=== PATIENT | female | born 1985 | race Caucasian/White ===

== ENCOUNTER 2018-01-22 14:45 | Outpatient (RCR) | payer BC, OTHER ==
[~2018-01-22 14:45] MED LIST: IBU-6600 MG PO; MOTRIN 800800 MG/TAB PO; PERCOCET 325 MG1 TA2 PO; PRENATAL1 TA1; PRENATAL1 TA7 PO; STOOL SOFTENER100 M2 PO
== END 2018-02-15 | disposition home or self-care (01) ==
LOC: WSPT
DX: M54.16 Radiculopathy, lumbar region (principal)
CPT/HCPCS: G0283-GP

== ENCOUNTER 2019-10-20 16:15 | Outpatient (RCR) | payer BC, OTHER | END 2019-11-03 13:40 | disposition home or self-care (01) | LOC: WSPT 16:15 | DX: M48.061 Spinal stenosis, lumbar region without neurogenic claudication (principal) ==

== ENCOUNTER → 2020-09-03 | Outpatient (CLI) | payer OTHER | LOC: COL.RAD 12:05 | DX: N92.1 Excessive and frequent menstruation with irregular cycle (principal) ==